=== PATIENT | female | born 2000 | race African-American/Black ===

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

== ENCOUNTER 2019-08-28 18:04 | Emergency (ER) | payer OTHER, SELFPAY ==
[2019-08-29 15:42] LABS: Chlamydia by PCR Not Detected (NotDetected); GC by PCR Not Detected (NotDetected)
== END 2019-08-28 19:32 | disposition home or self-care (01) ==
LOC: ERS 18:04
DX: B37.3 Candidiasis of vulva and vagina (principal)
CPT/HCPCS: 87480; 87491; 87510; 87591; 87660; 99283

== ENCOUNTER 2020-10-27 21:24 | Emergency (ER) | payer OTHER | END 2020-10-27 23:12 | disposition home or self-care (01) | LOC: ERS 21:24 | DX: R51.9 Headache, unspecified (principal); Z02.79 Encounter for issue of other medical certificate | CPT/HCPCS: 99281 ==